=== PATIENT | male | born 1960 | race Caucasian/White ===

== ENCOUNTER → 2019-08-22 08:53 | Outpatient (BNVA) | payer MEDICARE, MEDICAID, SELFPAY | PROVIDERS: Family Provider Nurse Practitioner; PCP Nurse Practitioner; Visit Provider Nurse Practitioner Family | DX: E78.5 Hyperlipidemia, unspecified (principal); I10 Essential (primary) hypertension; F41.9 Anxiety disorder, unspecified; J45.998 Other asthma | CPT/HCPCS: 80053; 80061; 84443; 85025 ==

== ENCOUNTER → 2020-01-14 09:57 | Outpatient (BNVA) | payer MEDICARE, MEDICAID, SELFPAY | PROVIDERS: Family Provider Nurse Practitioner; PCP Nurse Practitioner; Visit Provider Nurse Practitioner Family | DX: I10 Essential (primary) hypertension (principal); E78.5 Hyperlipidemia, unspecified; Z12.5 Encounter for screening for malignant neoplasm of prostate; F41.9 Anxiety disorder, unspecified; J45.998 Other asthma | CPT/HCPCS: 80053; 80061; 84443; 85025; G0103 ==

== ENCOUNTER → 2020-05-26 08:52 | Outpatient (BNVA) | payer MEDICARE, MEDICAID, SELFPAY | PROVIDERS: Family Provider Nurse Practitioner; PCP Nurse Practitioner; Visit Provider Nurse Practitioner | DX: I10 Essential (primary) hypertension (principal); E78.5 Hyperlipidemia, unspecified; J45.998 Other asthma | CPT/HCPCS: 80053; 80061 ==

== ENCOUNTER → 2020-12-10 10:38 | Outpatient (BNVA) | payer MEDICARE, MEDICAID, SELFPAY | PROVIDERS: Family Provider Nurse Practitioner; PCP Nurse Practitioner; Visit Provider Nurse Practitioner | DX: I10 Essential (primary) hypertension (principal); F41.9 Anxiety disorder, unspecified; E78.5 Hyperlipidemia, unspecified; J45.998 Other asthma | CPT/HCPCS: 80053; 80061; 81000; 84443 ==

== ENCOUNTER → 2021-03-30 10:46 | Outpatient (BNVA) | payer MEDICARE, MEDICAID, SELFPAY | PROVIDERS: Family Provider Nurse Practitioner; PCP Nurse Practitioner; Visit Provider Nurse Practitioner | DX: J45.998 Other asthma (principal); I10 Essential (primary) hypertension; F41.9 Anxiety disorder, unspecified; E78.5 Hyperlipidemia, unspecified | CPT/HCPCS: 71046; 85025 ==

== ENCOUNTER → 2021-07-08 08:27 | Outpatient (BNVA) | payer MEDICARE, MEDICAID, SELFPAY | PROVIDERS: Family Provider Nurse Practitioner; PCP Nurse Practitioner; Visit Provider Nurse Practitioner | DX: I10 Essential (primary) hypertension (principal); F41.9 Anxiety disorder, unspecified; E78.5 Hyperlipidemia, unspecified; J45.998 Other asthma | CPT/HCPCS: 80053; 80061; 81000 ==

== ENCOUNTER → 2022-04-08 09:48 | Outpatient (BNVA) | payer MEDICARE, MEDICAID, SELFPAY | PROVIDERS: Family Provider Nurse Practitioner; PCP Nurse Practitioner; Visit Provider Nurse Practitioner | DX: E78.5 Hyperlipidemia, unspecified (principal); J30.2 Other seasonal allergic rhinitis; I10 Essential (primary) hypertension; F41.9 Anxiety disorder, unspecified | CPT/HCPCS: 80053; 80061; 81000 ==

== ENCOUNTER → 2022-09-29 08:50 | Outpatient (BNVA) | payer MEDICARE, MEDICAID, SELFPAY | PROVIDERS: Family Provider Nurse Practitioner; PCP Nurse Practitioner; Visit Provider Nurse Practitioner | DX: E55.9 Vitamin D deficiency, unspecified (principal); Z12.5 Encounter for screening for malignant neoplasm of prostate; I10 Essential (primary) hypertension | CPT/HCPCS: 80053; 80061; 82306; 82607; 85025; G0103 ==

== ENCOUNTER → 2023-03-16 08:44 | Outpatient (BNVA) | payer MEDICARE, MEDICAID, SELFPAY | PROVIDERS: Family Provider Nurse Practitioner; PCP Nurse Practitioner; Visit Provider Nurse Practitioner | DX: I10 Essential (primary) hypertension (principal) | CPT/HCPCS: 80053; 80061; 81000; 84443 ==

== ENCOUNTER → 2023-06-08 09:17 | Outpatient (BNVA) | payer MEDICARE, MEDICAID, SELFPAY | PROVIDERS: Family Provider Nurse Practitioner; PCP Nurse Practitioner; Visit Provider Nurse Practitioner | DX: E55.9 Vitamin D deficiency, unspecified (principal); I10 Essential (primary) hypertension; E78.5 Hyperlipidemia, unspecified | CPT/HCPCS: 80053; 80061; 82306; 82607; 83735; 84443; 85025 ==

== ENCOUNTER → 2023-06-19 13:54 | Outpatient (BNVA) | payer MEDICARE, MEDICAID, SELFPAY | PROVIDERS: Family Provider Nurse Practitioner; PCP Nurse Practitioner; Referring Provider Nurse Practitioner; Visit Provider Internal Medicine Cardiovascular Disease | DX: R00.1 Bradycardia, unspecified (principal); I49.1 Atrial premature depolarization; I49.3 Ventricular premature depolarization; I48.91 Unspecified atrial fibrillation | CPT/HCPCS: 93242 ==

== ENCOUNTER 2023-10-24 07:00 | Outpatient (CLI) | payer MEDICARE, SELFPAY ==
--- NOTE | 2023-10-24 07:00 | USCV_ITS ---
Antelmo Govea Age: 63 Gender: M : 1960 Exam Date: 10/24/2023 08:36 Ordering Phys: Mani Dorman Technologist: CT Exam Location: [facility] [place] Indication: bradycardia BP: 140 / 79 HR: 36 Rhythm: Sinus Technical Quality: Adequate MEASUREMENTS (Male / Female) Normal Values 2D ECHO LVOT Diameter 2.3 cm LV Ejection Fraction MOD 4C 71.0 % LV Ejection Fraction MOD 2C 41.6 % LV Ejection Fraction 2C AL 46.1 % LA Diameter 4.0 cm RA Systolic Volume 4C AL 39.8 ml RA Systolic Volume 4C MOD 39.2 ml LA Sys Volume AL 50.5 cm cubed LA Sys Volume Index AL 24.1 cm cubed/m squared Aorta at Sinotubular Diameter 2.3 cm IVC Diameter 1.8 cm M-MODE LA Ao Ratio MM 1.8 AV Cusp Separation MM 2.2 cm DOPPLER AV Peak Velocity 131.0 cm/s LVOT Peak Velocity 85.0 cm/s AV Area Cont Eq vti 3.2 cm squared AV Area Cont Eq pk 2.6 cm squared MV Peak Velocity 124.0 cm/s MV Area PHT 3.8 cm squared Mitral E to A Ratio 2.5 TR Peak Velocity 166.0 cm/s TR Peak Gradient 11.0 mmHg TV Peak E Velocity 72.0 cm/s Right Atrial Pressure 3.0 mmHg Pulmonary Artery Systolic Pressu 14.0 mmHg PV Peak Velocity 93.0 cm/s FINDINGS Left Ventricle No regional wall motion abnormalities. Mild left ventricular hypertrophy. Normal left ventricular size and systolic function, EF 60%( visual). Right Ventricle The right ventricle is normal in size and function. Right Atrium The right atrium is normal in size. Left Atrium The left atrium is normal in size. Mitral Valve No gross wall motion abnormalities. Aortic Valve No gross wall motion abnormalities Tricuspid Valve No gross wall motion abnormalities Pulmonic Valve No gross wall motion abnormalities Pericardium Normal pericardium without effusion. Aorta Normal ascending aorta dimension. IVC The inferior vena cava appears normal. CONCLUSIONS No regional wall motion abnormalities. Mild left ventricular hypertrophy. Normal left ventricular size and systolic function, EF 60%( visual). There is no pericardial effusion. There are no intracardiac masses. No similar previous studies are available for comparison Dr Gurvinder Gracia MD FACC (Electronically Signed) Final Date: 31 October 2023 08:58 S
== END 2023-10-24 08:06 | disposition home or self-care (01) ==
PROVIDERS: Family Provider Nurse Practitioner; PCP Nurse Practitioner; Visit Provider Nurse Practitioner
DX: R00.1 Bradycardia, unspecified (principal)
CPT/HCPCS: 93306

== ENCOUNTER → 2023-11-23 09:19 | Outpatient (BNVA) | payer MEDICARE, SELFPAY | PROVIDERS: Family Provider Nurse Practitioner; PCP Nurse Practitioner; Visit Provider Nurse Practitioner | DX: Z11.59 Encounter for screening for other viral diseases (principal); Z12.5 Encounter for screening for malignant neoplasm of prostate; I10 Essential (primary) hypertension; E78.5 Hyperlipidemia, unspecified | CPT/HCPCS: 80053; 80061; 84443; 86704; 86803; G0103 ==